=== PATIENT | male | born 1995 | race Two or more races ===

== ENCOUNTER → 2022-05-01 06:00 | Outpatient (CLI) | payer OTHER | END | disposition home or self-care (01) | LOC: LAB 06:00 → ADM 09:15 → CIR.AMB 05-06 07:00 → EDSTATUS 05-06 09:15 | PROVIDERS: ATTEND Surgery | DX: Z03.818 Encounter for observation for suspected exposure to other biological agents ruled out (principal); Z20.822 Contact with and (suspected) exposure to COVID-19; K62.5 Hemorrhage of anus and rectum; R85.619 Unspecified abnormal cytological findings in specimens from anus ==